=== PATIENT | male | born 1945 | race Caucasian/White ===

== ENCOUNTER 2017-04-24 06:43 | Emergency (ER) | payer OTHER, MEDICAID ==
[2017-04-24] MEDS: DIPHTH/TET/ACEL PERTUSS (ADULT) 0.5 ML VIAL IM* (07:44)
== END 2017-04-24 08:20 | disposition home or self-care (01) ==
LOC: FTE 06:43
DX: S61.216A Laceration without foreign body of right little finger without damage to nail, initial encounter (principal); I10 Essential (primary) hypertension; E11.9 Type 2 diabetes mellitus without complications; F17.210 Nicotine dependence, cigarettes, uncomplicated; X58.XXXA Exposure to other specified factors, initial encounter; Y92.9 Unspecified place or not applicable; Z79.4 Long term (current) use of insulin; Z23 Encounter for immunization
CPT/HCPCS: 12001; 90471; 90715; 99283-25

== ENCOUNTER 2018-02-17 07:30 | Emergency (ER) | payer OTHER ==
[2018-02-17] MEDS: IBUPROFEN 200 MG TAB PO (08:00)
== END 2018-02-17 10:39 | disposition home or self-care (01) ==
LOC: FTE 07:30
DX: S82.831A Other fracture of upper and lower end of right fibula, initial encounter for closed fracture (principal); E11.9 Type 2 diabetes mellitus without complications; I10 Essential (primary) hypertension; W18.49XA Other slipping, tripping and stumbling without falling, initial encounter; Y92.9 Unspecified place or not applicable; Z87.891 Personal history of nicotine dependence
CPT/HCPCS: 29505; 73562; 73590; 99283-25

== ENCOUNTER 2018-10-04 06:25 | Emergency (ER) | payer OTHER ==
[2018-10-04] MEDS: KETOROLAC 30 MG INJ IM (07:01)
== END 2018-10-04 07:22 | disposition home or self-care (01) ==
LOC: FTE 06:25
DX: M54.41 Lumbago with sciatica, right side (principal); M62.830 Muscle spasm of back; I10 Essential (primary) hypertension; F17.210 Nicotine dependence, cigarettes, uncomplicated; E11.9 Type 2 diabetes mellitus without complications; Z79.4 Long term (current) use of insulin
CPT/HCPCS: 96372; 99284-25

== ENCOUNTER 2018-10-22 07:53 | Emergency (ER) | payer OTHER ==
[2018-10-22] MEDS: IBUPROFEN 600 MG TAB PO (08:22)
[2018-10-22] MEDS ORDERED: METHOCARBAMOL 500 MG TAB PO (08:30)
[2018-10-22] MEDS: METHOCARBAMOL 750 MG TAB PO (08:31)
== END 2018-10-22 09:25 | disposition home or self-care (01) ==
LOC: FTE 09:25
DX: M54.5 Low back pain (principal); I10 Essential (primary) hypertension; E11.9 Type 2 diabetes mellitus without complications; Z79.4 Long term (current) use of insulin; Z87.891 Personal history of nicotine dependence
CPT/HCPCS: 72100; 99283-25